=== PATIENT | female | born 1985 | race Caucasian/White ===

== ENCOUNTER 2023-10-28 08:26 | Emergency (ER) | payer MEDICAID ==
[~2023-10-28] VITALS: Ht 167.6 cm; Wt 62.6 kg
[2023-10-28] MEDS ORDERED: TDAP [DIPH/PERTUSSIS/TET] 0.5 ML VIAL IM ONE ×2 (08:43→09:00)
[2023-10-28] MEDS ORDERED: LIDOCAINE HCL/PF 1% 30 ML SDV ONE (08:43)
[2023-10-28] MEDS ORDERED: LIDOCAINE HCL/PF 1% 30 ML VIAL TP ONE (09:00)
[2023-10-28 09:13] VITALS: BP 118/76; TEMP 98.2; O2SAT 100
== END 2023-10-28 09:13 | disposition home or self-care (01) ==
LOC: ER 08:28
DX: S61.412A Laceration without foreign body of left hand, initial encounter (principal); W26.0XXA Contact with knife, initial encounter; Y93.89 Activity, other specified; Y92.89 Other specified places as the place of occurrence of the external cause; Y99.8 Other external cause status
CPT/HCPCS: 12001; 90471; 90715; 99283; A6403; J3490